=== PATIENT | female | born 1970 | race Caucasian/White ===

== ENCOUNTER → 2017-01-18 | Outpatient (CLI) | payer BC, OTHER ==
[~2017-01-18] MED LIST: ALBU18002 INH; ASMIN INH; CALC600T9 PO; CLC150 PO; CLR10 PO; ESTR0.5T3 PO; METFTAB PO; MONT1TAB3 PO; MULT-506 PO; NASONEX INH; NITR-5 PO; PHEN-876 PO; RANI300T2 PO; SNG10 PO; [UNRECOGNIZED DRUG - REMARK]
== END | disposition home or self-care (01) ==
LOC: C.RDSM 14:00
PROVIDERS: ATTEND Physical Medicine & Rehabilitation Sports Medicine
DX: M25.531 Pain in right wrist (principal); M25.532 Pain in left wrist

== ENCOUNTER → 2017-02-04 | Day surgery (SDC) | payer BC ==
[2017-01-21 11:51] VITALS: Ht 155.4 cm; Wt 75.5 kg
[~2017-02-04] VITALS: Ht 155.4 cm; Wt 75.5 kg
[~2017-02-04] MED LIST changes: +ATROPINE SULFATE 0.1 MG/ML 5ML SYR IV PRN; +BUPIVACAINE/EPINEPHRINE 0.5% MPF 1:200,000 30 ML VIAL ONE; +CLINDAMYCIN PHOS 150 MG/ML 2 ML VIAL IV SCH; +EpHEDrine SULFATE INJ 50 MG/ML AMP IV PRN; +FENTANYL CITRATE INJ 50 MCG/1 ML 2 ML VIAL IV PRN; +FENTANYL CITRATE INJ 50 MCG/1 ML 2 ML VIAL ONE; +LACTATED RINGER'S 1000ML 1,000 ML IV SCH; +LIDOCAINE HCL 2% 2 ML VIAL (20MG/ML) ONE; +LIDOCAINE/EPINEPHRINE 1% INJ 50 ML VIAL ONE; +MIDAZOLAM HCL 1 MG/ML 2ML VIAL ONE; -NITR-5 PO; +ONDANSETRON INJ 2 MG/ML 2 ML VIAL IV PRN; -PHEN-876 PO; +PROPOFOL IV EMULSION 10 MG/ML 20 ML VIAL IV ONE; -SNG10 PO; +SODIUM CHLORIDE 0.9% 1000ML 1,000 ML IV SCH; +TRAMADOL HCL 50 MG TAB PO PRN; -[UNRECOGNIZED DRUG - REMARK]
--- NOTE | 2017-02-04 14:38 | History & Physical Bridge Note ---
H&P Re-Evaluation Bridge Note: I have examined the patient, reviewed the History & Physical and in the interval since the performance of the History & Physical I have noted the following changes of clinical significance: No changes noted
--- NOTE | 2017-02-04 15:32 | Discharge Instructions-SurgCtr ---
Discharge Instructions Date of Service Feb 04, 2017. Visit Reason for Visit: Left Wrist Carpal Tunnel Syndrome, Dequervain Tend Discharge Discharge Diagnosis / Problem: Left wrist carpal tunnel syndrome; dequervains tenosynovitis Discharge Goals Goal(s): Decrease discomfort, Improve function, Increase independence Medications Stopped Medications Name(s): Metformin stopped 02/01/17 Activity Recommendations Activity Limitations: per Instructions/Follow-up section Anesthesia . Post Anesthesia Instructions: If you have had General Anesthesia or IV Sedation: * Do not drive today. * Resume driving when surgeon permits. * Do not make important decisions or sign legal documents today. * Call surgeon for: 1. Temperature elevations greater than 101 degrees F. 2. Uncontrollable pain. 3. Excessive bleeding. 4. Persistent nausea and vomiting. 5. Medication intolerance (nausea, vomiting or rash). * For nausea and vomiting use only clear liquids such as: tea, soda, bouillon until nausea subsides, then gradually increase diet as tolerated. * If you have any concerns or questions, call your surgeon's office. If physician is unavailable and it is an emergency, call 911 or go to the nearest emergency room. . Instructions / Follow-Up Instructions / Follow-Up The following are instructions to follow after minor hand surgery. ACTIVITY RECOMMENDATIONS: * Minimize activity until your first visit after surgery. * No excessive walking, jogging, sports or laboring. * Return to activity is individualized. Most patients are able to return to everyday activities within 2 weeks. * Return to sports or intensive labor usually occurs at 1-2 months. * DRIVING: Driving may be resumed when you feel you have adequate pain control and use of the hand. * BATHING: You may shower or sponge-bathe immediately after surgery. The dressing will need to be covered with a plastic bag or plastic wrap until the dressing is changed on the fourth or fifth day after surgery. Once the dressing has been changed on the fourth or fifth day after surgery, you may shower and get the incision wet. * Wash with regular soap and water. * Do not bathe (submerge the incision), soak, swim or use a hot tub until the incision is completely healed over with normal skin and the doctor has given the OK to proceed. * There is no need to apply any ointments, powders or salves to your incision. * Do not apply alcohol or hydrogen peroxide directly to the incision. Diluted peroxide (50:50 mixture with sterile saline) may be used to clean dried blood from around the incision area. WORK/SCHOOL: * You may return to sedentary work or school when you are feeling comfortable. This is usually 3-7 days after surgery. * Expect increased discomfort with increased activity. Continue to elevate and ice the hand as much as possible. DIET: * Resume previous diet. MEDICATIONS: * You will have a prescription for pain medication and an anti-inflammatory medication after surgery. Use the pain pills for severe pain and the anti-inflammatory for less severe pain. * Once the pain pills have run out, try to use the anti-inflammatory. If this is not effective then contact the office for assistance. * The pain medication may cause nausea, constipation and sleepiness. You should see how they affect you before driving or similar activity. * The anti-inflammatory may cause stomach upset and bleeding. If this occurs, let your doctor know immediately . * Some patients may need blood clot prevention. This can be done with either a pill or a simple shot. Your doctor will advise you on when to begin these medications and how to take them. * Do not take aspirin or other anti-inflammatory products (i.e. Advil or Aleve ) if taking blood thinner medication. * Take a stool softener like Colace or a stimulant like Senokot to prevent constipation. SPECIAL CARE INSTRUCTIONS: ICE: * Do not apply ice directly to the skin. * Use a thin dressing or stockinet between the skin and ice bag. The dressing in place after surgery will suffice. * Apply ice for 20-30 minutes and repeat every 2-4 hours. This is especially important for the first 3-7 days after surgery. * Once the pain improves, use ice as needed. ELEVATION: * Keep your hand elevated at or above the level of your heart as much as possible. * Expect some increased discomfort and swelling if you allow your hand to hang down for any length of time. DRESSING: * Your dressing will be changed 4-5 days after surgery by the physical therapist or physician's real estate legal assistant. Leave your dressing intact until this time. * You may then change your dressing daily with clean dry gauze or Band-aids and a soft wrap or stockinet. * Always wash your hands prior to touching the incision area. * Once the stitches are removed, you may leave the wound open to air or cover with a thin bandage. * There is no need to apply any ointments, powders or salves to your incision. * Expect some bloody drainage for the first few days after surgery. * Leave the tape strips in place (if present) for 5-7 days. * The initial dressing after surgery may become soaked with blood or fluid which is normal. You may reinforce your dressing with clean, dry gauze as needed. BRACE: * Bracing is generally not needed after routine hand surgery. THERAPY: * Physical therapy may be prescribed after your surgery. * For carpal tunnel and trigger digit surgery you may begin moving your fingers and wrist immediately after surgery as tolerated. * Be careful to not overuse. * Once the sutures are removed, further range of motion exercises can be performed. * Hand incisions may be very sensitive for a few months after surgery so avoid excessive pressure on the incision. If necessary, use a padded weightlifters' glove. * You may massage the incision with skin cream to make it less sensitive and reduce scarring. * Hand strength usually returns with normal use. * If needed, squeezing a soft sponge or Play-dough may help. * Your doctor will recommend physical therapy if necessary. PROBLEMS/QUESTIONS: * If you have any problems such as severe pain, numbness, tingling or high fevers or if you have any questions, please contact the office at [phone]. * It is not uncommon to have some numbness and tingling after the surgery especially if you have had a nerve block done. This should gradually improve over the first 1- 2 days. If this persists longer or worsens then contact the office. FOLLOW UP VISIT: * If not already scheduled, please call the office at to schedule follow-up appointments for approximately 10 days, 6 weeks and 3 months after surgery. * You have a physical therapy appointment on 02/08/17 at 10:00 a.m. * You have a follow up appointment with Dr. Moreno on 02/16/17 at 3:00 p.m. Diet Recommendations Home Diet: no limitations, resume previous diet Procedures Procedures Performed: Left Wrist Carpal Tunnel Release; First Dorsal Compartment Release Pending Studies Studies pending at discharge: no Medical Emergencies . Who to Call and When: Medical Emergencies: If at any time you feel your situation is an emergency, please call 911 immediately. . Non-Emergent Contact Non-Emergency issues call your: Surgeon Call Non-Emergent contact if: temperature is above 101, your pain is not controlled, your pain is concerning you, wound has increased drainage, wound has increased redness, wound has increased pain, you have any medication questions . . "Provider Documentation" section prepared by Virgie Sharma. .
[2017-02-04 15:34] VITALS: TEMP 36.9
--- NOTE | 2017-02-04 15:37 | [facility] Post Operative Brief Note ---
Immediate Operative Summary Operative Date Feb 04, 2017. Pre-Operative Diagnosis Left carpal tunnel syndrome, DeQuervain's tenosynovitis Post-Operative Diagnosis same Procedure(s) Performed Left Wrist Carpal Tunnel Release; First Dorsal Compartment Release Surgeon Dr Moreno Manager Continuous Improvement Surgeon(s) Harry Sharma PA-C Estimated Blood Loss 0 Findings none Specimens 0 Drains 0 Anesthesia local with IV sedation Complication(s) None Disposition Recovery Room / PACU
--- NOTE | 2017-02-04 15:37 | [facility] Operative Report ---
Operative Report Operative Date Feb 04, 2017. Pre-Operative Diagnosis Left carpal tunnel syndrome, DeQuervain's tenosynovitis Post-Operative Diagnosis Left carpal tunnel syndrome, dequervain's tenosynovitis Procedure(s) Performed Left first dorsal compartment release, open left carpal tunnel release Surgeon Dr Moreno Machine Sign Writer Surgeon(s) Virgie Sharma PA-C Estimated Blood Loss 0 Findings CTS, dequervain's tenosynovitis Specimens 0 Complication(s) None Disposition Recovery Room / PACU (stable) Indications Patient is a 46 year old female, with complaints of left hand paresthesias and pain x 10 years. Failed conservative therapy. X-rays/EMG obtained. Surgery recommended. Risks/complications discussed, informed consent obtained. Description of Procedure Patient was taken to the operating room, placed under sedation, given local anesthesia. Time out performed, prepped and draped in routine sterile fashion. I was present the entire case, please see Dr. Moreno's operative report for further detail. Patient was awakened and taken to the recovery room in stable condition. I attest to the content of the Intraoperative Record and any orders documented therein. Any exceptions are noted below.
[2017-02-04 15:54] VITALS: BP 109/72; PULSE 81; O2SAT 97
--- NOTE | 2017-02-04 16:01 | Anesthesia Progress Nt - [facility] ---
Anesthesia Post Op Note Date & Time Feb 04, 2017 at 16:01 Vital Signs Pain Intensity: 0 Vital Signs Past 12 Hours Date Time Temp Pulse Resp B/P (MAP) Pulse Ox O2 Delivery O2 Flow Rate FiO2 02/04/17 15:54 81 16 109/72 (84) 97 Room Air 02/04/17 15:34 36.9 88 16 98/61 (73) 100 Room Air 02/04/17 13:41 36.7 71 16 102/71 (81) 98 Room Air Notes Mental Status: alert / awake / arousable, participated in evaluation Pt Amnestic to Procedure: Yes Nausea / Vomiting: adequately controlled Pain: adequately controlled Airway Patency, RR, SpO2: stable & adequate BP & HR: stable & adequate Hydration State: stable & adequate Anesthetic Complications: no major complications apparent
--- NOTE | 2017-02-04 21:24 | OPERATIVE REPORT ---
DATE OF OPERATION: 02/04/2017 PREOPERATIVE DIAGNOSIS: Left wrist de Quervain tendonitis and carpal tunnel syndrome. POSTOPERATIVE DIAGNOSIS: Same. PROCEDURE: Left wrist first dorsal compartment release and open carpal tunnel release. SURGEON: Dr. Moreno. REEL WORKER: Virgie Sharma. No resident or fellow available. ANESTHESIA: Local with IV sedation. INDICATIONS OF PROCEDURE: The patient is a 46-year-old female with left carpal tunnel syndrome and Quervain tendinitis refractory to nonoperative methods of management. She has elected to proceed with operative intervention. PROCEDURE IN DETAIL: Informed consent was obtained. The patient was identified as Daxa Stevens. She identified the operative site as the left wrist. I marked both areas separately with my initials. A preop surgical time out was performed. A preop dose of IV antibiotics was given. She was positioned supine on the operating room table with the left arm on a hand table. Tourniquet was applied to the left upper arm. Prior to prepping and draping, approximately 10 mL of a 50:50 mixture of 1% lidocaine and 0.5% Marcaine, both containing epinephrine were injected in to the radial aspect of the wrist and carpal tunnel for anesthesia. DVT prophylaxis is not indicated. The examination under anesthesia was unremarkable. The left upper extremity was prepped and draped in usual sterile fashion. The limb was exsanguinated with the Esmarch, tourniquet inflated to 225 mmHg. A longitudinal incision was made over the radial styloid towards its volar aspect. The branch of the superficial radial nerve was immediately identified and the volar skin flap preserved and protected. Blunt dissection was performed down to the level of the first dorsal compartment. The distal extent was identified and the release was performed towards the dorsal portion of the compartment. No notable inflammation was noted. There was a distal muscle belly of one of the tendon was appreciated. There are no ganglions noted. The tendons were normal. I explored thoroughly for any septations were separate compartments throughout that compartment as well as distally, volarly and dorsally. The tendons were identified by differential movement. Finding no other issues, the wound was irrigated and then closed skin only with 4-0 nylon horizontal mattress stitches. Another timeout was performed and then the carpal tunnel release was performed. An incision was made beginning at Martin's cardinal line and proceeding just short of the distal transverse wrist crease, blunt dissection was performed down to the subcutaneous tissues and superficial fascia. Self-retaining retractors were inserted. The distal extent of the canal was identified and then divided in line with the incision up into the distal forearm fascia under direct visualization. The patient had a prominent palmaris brevis muscle which was carefully dissected out. The superficial palmar arch was identified in the fat distally. A good wide decompression was obtained. There was no pathology in the floor of the tunnel, the tendons and tenosynovium as well as the nerve were normal. The wound was irrigated and closed with 4-0 nylon interrupted horizontal mattress stitches. A soft sterile dressing was applied. The tourniquet was let down after approximately 20 minutes of inflation. There were no specimens or complications. Counts were correct at the end of case. Blood loss was minimal. At the conclusion of the operation, I spoke to the patient's family and informed them of my findings. Postoperative instructions were given. She can do early active range of motion. She will be in a soft dressing and can rehab according to the applicable protocol. She will be seen in physical therapy. I attest to the content of the Intraoperative Record and any orders documented therein. Any exception s are noted below.
== END | disposition home or self-care (01) ==
LOC: X.SURG 12:48
PROVIDERS: ATTEND Physical Medicine & Rehabilitation Sports Medicine
DX: M65.4 Radial styloid tenosynovitis [de Quervain] (principal); G56.02 Carpal tunnel syndrome, left upper limb; I71.9 Aortic aneurysm of unspecified site, without rupture; E78.00 Pure hypercholesterolemia, unspecified; E11.9 Type 2 diabetes mellitus without complications; K21.9 Gastro-esophageal reflux disease without esophagitis; E66.3 Overweight; Z79.84 Long term (current) use of oral hypoglycemic drugs; Z79.899 Other long term (current) drug therapy

== ENCOUNTER → 2017-04-08 | Day surgery (SDC) | payer BC ==
[2017-03-26 12:36] VITALS: Ht 154.9 cm; Wt 72.7 kg
[~2017-04-08] VITALS: Ht 154.9 cm; Wt 72.7 kg
[~2017-04-08] MED LIST changes: +BUPIVACAINE/EPINEPHRINE 0.5% MPF 1:200,000 10 ML VIAL ONE; -BUPIVACAINE/EPINEPHRINE 0.5% MPF 1:200,000 30 ML VIAL ONE; -CLC150 PO
--- NOTE | 2017-04-08 08:36 | [facility] Operative Report ---
Operative Report Operative Date Apr 08, 2017. Pre-Operative Diagnosis Right Carpal Tunnel Release Post-Operative Diagnosis Same Procedure(s) Performed Right Carpal Tunnel Release Surgeon Dr. Chas Moreno Watch Crystal Cutter Surgeon(s) Olvin Sharma PA-C Estimated Blood Loss 0 Findings None Specimens None Drains none Complication(s) None Disposition Recovery Room / PACU Implants None Indications Patient's 47-year-old female with carpal tunnel syndrome of the right wrist refractory to nonsurgical methods of management. Description of Procedure Informed consent was obtained. The patient was identified as Ish Stevens. She identified the operative site as the right carpal tunnel. I marked with my initials. Preoperative surgical timeout was performed. A preoperative dose of IV antibiotics was given. She was taken to the operating room positioned supine on the hospital stretcher. The right arm was positioned on a hand table. A tourniquet was applied to the right upper arm. The arm was prepped and draped in the usual sterile fashion. The examination under anesthesia was unremarkable. DVT prophylaxis is not indicated. A 50-50 mixture of 1% lidocaine and 0.5% Marcaine with epinephrine was injected for carpal tunnel block. The limb was exsanguinated with the Esmarch. Tourniquet inflated to 225 mmHg. A longitudinal incision was made in line with the third webspace. This began a Martin's cardinal line and proceeded just short of the main transverse distal wrist crease. Blunt dissection performed to subcutaneous tissues and superficial fascia. The distal extent of the transverse carpal ligament was identified. The transverse carpal ligament was then released using a knife and tenotomy scissors up into the distal forearm fascia under direct visualization. No superficial nerves were encountered. A prominent palmaris brevis muscle was noted. The contents of the carpal canal nerve tendons and tenosynovium looked normal. The wound was irrigated and then closed with 4-0 nylon using a horizontal mattress stitch. A soft sterile dressing was applied and the tourniquet was let down after approximately 10 minutes of inflation. There are no specimens or complications. Counts are correct in the case. Blood loss was minimal. At the conclusion operations both patient's and informed her my findings. Postoperative instructions were given. She'll be rehabilitated according to the carpal tunnel protocol. I attest to the content of the Intraoperative Record and any orders documented therein. Any exceptions are noted below.
--- NOTE | 2017-04-08 08:40 | Discharge Instructions-SurgCtr ---
Discharge Instructions Date of Service Apr 08, 2017. Visit Reason for Visit: Right Carpal Tunnel Syndrome Discharge Discharge Diagnosis / Problem: Right carpal tunnel syndrome Discharge Goals Goal(s): Decrease discomfort, Improve function, Increase independence Medications Stopped Medications Name(s): glucophage stopped 3 nights ago Activity Recommendations Activity Limitations: per Instructions/Follow-up section Anesthesia . Post Anesthesia Instructions: If you have had General Anesthesia or IV Sedation: * Do not drive today. * Resume driving when surgeon permits. * Do not make important decisions or sign legal documents today. * Call surgeon for: 1. Temperature elevations greater than 101 degrees F. 2. Uncontrollable pain. 3. Excessive bleeding. 4. Persistent nausea and vomiting. 5. Medication intolerance (nausea, vomiting or rash). * For nausea and vomiting use only clear liquids such as: tea, soda, bouillon until nausea subsides, then gradually increase diet as tolerated. * If you have any concerns or questions, call your surgeon's office. If physician is unavailable and it is an emergency, call 911 or go to the nearest emergency room. . Instructions / Follow-Up Instructions / Follow-Up The following are instructions to follow after minor hand surgery. ACTIVITY RECOMMENDATIONS: * Minimize activity until your first visit after surgery. * No excessive walking, jogging, sports or laboring. * Return to activity is individualized. Most patients are able to return to everyday activities within 2 weeks. * Return to sports or intensive labor usually occurs at 1-2 months. * DRIVING: Driving may be resumed when you feel you have adequate pain control and use of the hand. * BATHING: You may shower or sponge-bathe immediately after surgery. The dressing will need to be covered with a plastic bag or plastic wrap until the dressing is changed on the fourth or fifth day after surgery. Once the dressing has been changed on the fourth or fifth day after surgery, you may shower and get the incision wet. * Wash with regular soap and water. * Do not bathe (submerge the incision), soak, swim or use a hot tub until the incision is completely healed over with normal skin and the doctor has given the OK to proceed. * There is no need to apply any ointments, powders or salves to your incision. * Do not apply alcohol or hydrogen peroxide directly to the incision. Diluted peroxide (50:50 mixture with sterile saline) may be used to clean dried blood from around the incision area. WORK/SCHOOL: * You may return to sedentary work or school when you are feeling comfortable. This is usually 3-7 days after surgery. * Expect increased discomfort with increased activity. Continue to elevate and ice the hand as much as possible. DIET: * Resume previous diet. MEDICATIONS: * You will have a prescription for pain medication and an anti-inflammatory medication after surgery. Use the pain pills for severe pain and the anti-inflammatory for less severe pain. * Once the pain pills have run out, try to use the anti-inflammatory. If this is not effective then contact the office for assistance. * The pain medication may cause nausea, constipation and sleepiness. You should see how they affect you before driving or similar activity. * The anti-inflammatory may cause stomach upset and bleeding. If this occurs, let your doctor know immediately . * Some patients may need blood clot prevention. This can be done with either a pill or a simple shot. Your doctor will advise you on when to begin these medications and how to take them. * Do not take aspirin or other anti-inflammatory products (i.e. Advil or Aleve ) if taking blood thinner medication. * Take a stool softener like Colace or a stimulant like Senokot to prevent constipation. SPECIAL CARE INSTRUCTIONS: ICE: * Do not apply ice directly to the skin. * Use a thin dressing or stockinet between the skin and ice bag. The dressing in place after surgery will suffice. * Apply ice for 20-30 minutes and repeat every 2-4 hours. This is especially important for the first 3-7 days after surgery. * Once the pain improves, use ice as needed. ELEVATION: * Keep your hand elevated at or above the level of your heart as much as possible. * Expect some increased discomfort and swelling if you allow your hand to hang down for any length of time. DRESSING: * Your dressing will be changed 4-5 days after surgery by the physical therapist or physician's law office assistant. Leave your dressing intact until this time. * You may then change your dressing daily with clean dry gauze or Band-aids and a soft wrap or stockinet. * Always wash your hands prior to touching the incision area. * Once the stitches are removed, you may leave the wound open to air or cover with a thin bandage. * There is no need to apply any ointments, powders or salves to your incision. * Expect some bloody drainage for the first few days after surgery. * Leave the tape strips in place (if present) for 5-7 days. * The initial dressing after surgery may become soaked with blood or fluid which is normal. You may reinforce your dressing with clean, dry gauze as needed. BRACE: * Bracing is generally not needed after routine hand surgery. THERAPY: * Physical therapy may be prescribed after your surgery. * For carpal tunnel and trigger digit surgery you may begin moving your fingers and wrist immediately after surgery as tolerated. * Be careful to not overuse. * Once the sutures are removed, further range of motion exercises can be performed. * Hand incisions may be very sensitive for a few months after surgery so avoid excessive pressure on the incision. If necessary, use a padded weightlifters' glove. * You may massage the incision with skin cream to make it less sensitive and reduce scarring. * Hand strength usually returns with normal use. * If needed, squeezing a soft sponge or Play-dough may help. * Your doctor will recommend physical therapy if necessary. PROBLEMS/QUESTIONS: * If you have any problems such as severe pain, numbness, tingling or high fevers or if you have any questions, please contact the office at [phone]. * It is not uncommon to have some numbness and tingling after the surgery especially if you have had a nerve block done. This should gradually improve over the first 1- 2 days. If this persists longer or worsens then contact the office. FOLLOW UP VISIT: * If not already scheduled, please call the office at to schedule follow-up appointments for approximately 10 days, 6 weeks and 3 months after surgery. * You will follow-up with Virgie Sharma PA-C on 04/13/2017 at 1:00 p.m. * You will follow-up with Dr. Moreno on 04/21/2017 at 4:15 PM Diet Recommendations Home Diet: no limitations, resume previous diet Procedures Procedures Performed: Right Carpal Tunnel Release Pending Studies Studies pending at discharge: no Medical Emergencies . Who to Call and When: Medical Emergencies: If at any time you feel your situation is an emergency, please call 911 immediately. . Non-Emergent Contact Non-Emergency issues call your: Surgeon Call Non-Emergent contact if: temperature is above 101, your pain is not controlled, wound has increased drainage, wound has increased redness, wound has increased pain, you have any medication questions . . "Provider Documentation" section prepared by Virgie Sharma. .
--- NOTE | 2017-04-08 08:44 | [facility] Operative Report ---
Operative Report Operative Date Apr 08, 2017. Pre-Operative Diagnosis Right Carpal Tunnel Release Post-Operative Diagnosis Same Procedure(s) Performed Right Carpal Tunnel Release Surgeon Dr. Yaron Moreno Associate Justice Surgeon(s) Virgie Sharma PA-C Estimated Blood Loss 0 Findings Carpal tunnel syndrome Specimens None Drains none Anesthesia local with sedation Complication(s) None Disposition Recovery Room / PACU (stable) Indications Patient is a 47-year-old female who presented to our office with complaints of right hand paresthesias. She has failed conservative treatment. X-rays were negative for bony abnormality. EMG nerve conduction study was done and she was found to have a carpal tunnel syndrome. Urgent intervention recommended. Risks and complications discussed. Informed consent obtained. Description of Procedure Patient was taken to the operating room and placed under IV sedation. She was given a local injection of her right hand. Timeout verbal consent was obtained. She was given clindamycin 600 mg IV for surgical prophylaxis. I was present in the entire case, please see Dr. Moreno's operative report for further detail. She was awakened and transferred to the recovery room in stable condition. I attest to the content of the Intraoperative Record and any orders documented therein. Any exceptions are noted below.
--- NOTE | 2017-04-08 08:59 | Anesthesia Progress Nt - [facility] ---
Anesthesia Post Op Note Date & Time Apr 08, 2017 at 08:59 Vital Signs Pain Intensity: 0 Vital Signs Past 12 Hours Date Time Temp Pulse Resp B/P (MAP) Pulse Ox O2 Delivery O2 Flow Rate FiO2 04/08/17 08:37 36.2 63 16 95/62 (73) 95 Room Air 04/08/17 07:55 36.5 65 16 96/67 (77) 96 Room Air Notes Mental Status: alert / awake / arousable, participated in evaluation Pt Amnestic to Procedure: Yes Nausea / Vomiting: adequately controlled Pain: adequately controlled Airway Patency, RR, SpO2: stable & adequate BP & HR: stable & adequate Hydration State: stable & adequate Anesthetic Complications: no major complications apparent
[2017-04-08 09:01] VITALS: BP 114/72; PULSE 83; TEMP 36.3; O2SAT 98
== END | disposition home or self-care (01) ==
LOC: X.SURG 07:25
PROVIDERS: ATTEND Physical Medicine & Rehabilitation Sports Medicine
DX: G56.01 Carpal tunnel syndrome, right upper limb (principal); E11.9 Type 2 diabetes mellitus without complications; K21.9 Gastro-esophageal reflux disease without esophagitis; Z90.710 Acquired absence of both cervix and uterus

== ENCOUNTER → 2017-04-26 | Outpatient (CLI) | payer BC ==
[~2017-04-26] MED LIST changes: -ATROPINE SULFATE 0.1 MG/ML 5ML SYR IV PRN; -BUPIVACAINE/EPINEPHRINE 0.5% MPF 1:200,000 10 ML VIAL ONE; -CLINDAMYCIN PHOS 150 MG/ML 2 ML VIAL IV SCH; -EpHEDrine SULFATE INJ 50 MG/ML AMP IV PRN; -FENTANYL CITRATE INJ 50 MCG/1 ML 2 ML VIAL IV PRN; -FENTANYL CITRATE INJ 50 MCG/1 ML 2 ML VIAL ONE; -LACTATED RINGER'S 1000ML 1,000 ML IV SCH; -LIDOCAINE HCL 2% 2 ML VIAL (20MG/ML) ONE; -LIDOCAINE/EPINEPHRINE 1% INJ 50 ML VIAL ONE; -MIDAZOLAM HCL 1 MG/ML 2ML VIAL ONE; -ONDANSETRON INJ 2 MG/ML 2 ML VIAL IV PRN; -PROPOFOL IV EMULSION 10 MG/ML 20 ML VIAL IV ONE; -SODIUM CHLORIDE 0.9% 1000ML 1,000 ML IV SCH; -TRAMADOL HCL 50 MG TAB PO PRN
--- NOTE | 2017-04-28 16:02 | MAMMOGRAPHY REPORT ---
BILATERAL DIGITAL SCREENING MAMMOGRAM TOMOSYNTHESIS WITH CAD: 04/26/2017 CLINICAL HISTORY: Routine screening. Patient has no complaints. TECHNIQUE: Breast tomosynthesis in addition to standard 2D mammography was performed. Current study was also evaluated with a Computer Aided Detection (CAD) system. COMPARISON: Comparison is made to exams dated: 04/20/2016 mammogram, 04/15/2015 mammogram, 04/12/2014 ma mmogram, 04/18/2013 mammogram, 04/07/2013 mammogram, and 04/04/2012 mammogram - [facility]. BREAST COMPOSITION: The tissue of both breasts is almost entirely fatty. FINDINGS: The parenchymal pattern is unchanged. No developing mass, architectural distortion or clus ter of suspicious microcalcifications is seen in either breast. IMPRESSION: ACR BI-RADS CATEGORY 2: BENIGN There is no mammographic evidence of malignancy. A 1 year screening mammogram is recommended. The pa tient will receive written notification of the results. Approximately 10% of breast cancers are not detected with mammography. A negative mammographic report should not delay biopsy if a clinically suggestive mass is present. Earnestine Miranda M.D. ay/:04/27/2017 17:38:07 Motor Coach Driver: Jaye CARRILLO(Donnie)(Irineo)(BD), [facility] letter sent: Normal 1/2 BI-RADS Code: ACR BI-RADS Category 2: Benign
== END | disposition home or self-care (01) ==
LOC: C.MAMM 07:46
PROVIDERS: ATTEND Obstetrics & Gynecology
DX: Z12.31 Encounter for screening mammogram for malignant neoplasm of breast (principal)

== ENCOUNTER → 2017-06-17 | Outpatient (CLI) | payer BC ==
[2017-06-17 13:10] LABS: BLOOD UREA NITROGEN 9 mg/dl (7-18); BUN/CREATININE RATIO 15.7 (10-20); CALCIUM 8.9 mg/dl (8.5-10.1); CARBON DIOXIDE 26 mmol/L (21-32); CHLORIDE 106 mmol/L (98-107); CHOLESTEROL 173 mg/dl (0-200); CREATININE 0.58 mg/dl (0.60-1.20); GLUCOSE 92 mg/dl (70-99); SODIUM 140 mmol/L (136-145)
[2017-06-17 13:12] LABS: CHOLESTEROL/HDL RATIO 3.5; HDL CHOLESTEROL 50 mg/dl; LDL CHOLESTEROL CALCULATED 92 mg/dl; TRIGLYCERIDES 155 mg/dl (0-150); VERY LOW DENSITY LIPOPROT CALC 31 mg/dl
[2017-06-17 14:52] LABS: ESTIMATED AVERAGE GLUCOSE 114 mg/dl; HA1C FLAG Normal (Normal)
== END | disposition home or self-care (01) ==
LOC: C.LABPVFM 09:19
PROVIDERS: ATTEND Nurse Practitioner
DX: R73.01 Impaired fasting glucose (principal); E78.5 Hyperlipidemia, unspecified

== ENCOUNTER → 2017-11-04 | Outpatient (CLI) | payer OTHER ==
[~2017-11-04] MED LIST changes: -CALC600T9 PO; +IBUP-1050 PO; +MELO-84 PO; -MULT-506 PO
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
== END | disposition home or self-care (01) ==
LOC: C.RADPV 11:16
PROVIDERS: ATTEND Nurse Practitioner
DX: S13.4XXA Sprain of ligaments of cervical spine, initial encounter (principal); X58.XXXA Exposure to other specified factors, initial encounter

== ENCOUNTER → 2017-12-28 | Outpatient (CLI) | payer OTHER ==
[2017-12-28 13:02] LABS: HEMOGLOBIN A1C 5.7 % (4.5-5.6)
[2017-12-28 13:43] LABS: BLOOD UREA NITROGEN 10 mg/dl (7-18); CALCIUM 9.1 mg/dl (8.5-10.1); CARBON DIOXIDE 27 mmol/L (21-32); CREATININE 0.74 mg/dl (0.60-1.20); GLUCOSE 96 mg/dl (70-99); SODIUM 140 mmol/L (136-145)
[2017-12-28 13:46] LABS: CHOLESTEROL 205 mg/dl (0-200); LDL CHOLESTEROL CALCULATED 121 mg/dl
== END | disposition home or self-care (01) ==
LOC: C.LABPVFM 07:14
PROVIDERS: ATTEND Nurse Practitioner
DX: R73.01 Impaired fasting glucose (principal); E78.5 Hyperlipidemia, unspecified

== ENCOUNTER → 2018-04-29 | Outpatient (CLI) | payer OTHER ==
--- NOTE | 2018-04-29 14:31 | MAMMOGRAPHY REPORT ---
BILATERAL DIGITAL SCREENING MAMMOGRAM TOMOSYNTHESIS WITH CAD: 04/29/2018 CLINICAL HISTORY: Routine screening. Patient has no complaints. TECHNIQUE: Breast tomosynthesis in addition to standard 2D mammography was performed. Current study w as also evaluated with a Computer Aided Detection (CAD) system. COMPARISON: Comparison is made to exams dated: 04/26/2017 mammogram, 04/20/2016 mammogram, 04/15/2015 m ammogram, 04/12/2014 mammogram, 04/18/2013 mammogram, and 04/07/2013 mammogram - [facility]. BREAST COMPOSITION: The tissue of both breasts is almost entirely fatty. FINDINGS: No suspicious masses, calcifications, or areas of architectural distortion are noted in either breast . There has been no significant interval change compared to prior exams. IMPRESSION: ACR BI-RADS CATEGORY 1: NEGATIVE There is no mammographic evidence of malignancy. A 1 year screening mammogram is recommended.( [id number]) The patient will receive written notification of the results. Some breast cancers are not detected with mammography. A negative mammographic report should not suzy y biopsy if a clinically suggestive mass is present. Chica Dewey M.D. ah/:04/29/2018 07:51:49 Production Control Scheduler: RT [place](R)(M)(BD), [facility] letter sent: Normal 1/2 BI-RADS Code: ACR BI-RADS Category 1: Negative
== END | disposition home or self-care (01) ==
LOC: C.MAMM 07:32
PROVIDERS: ATTEND Obstetrics & Gynecology
DX: Z12.31 Encounter for screening mammogram for malignant neoplasm of breast (principal)